=== PATIENT | male | born 1980 | race Caucasian/White ===

== ENCOUNTER 2022-03-14 15:36 | Inpatient (IN) | payer OTHER ==
[~2022-03-14] VITALS: Ht 167.6 cm; Wt 91.2 kg
[2022-03-14 16:19] VITALS: BP 160/83
[2022-03-14 17:09] LABS: BASOPHILS # (AUTO) 0.1 K/uL (0.00-0.22); BASOPHILS % (AUTO) 0.5 % (0.0-2.0); EOSINOPHILS # (AUTO) 0.1 K/uL (0-0.4); EOSINOPHILS % (AUTO) 0.8 % (0.0-4.0); HEMATOCRIT 45.8 % (36-52); HEMOGLOBIN 15.9 g/dL (12.0-18.0); LYMPHOCYTES # (AUTO) 1.1 K/uL (2.0-11.5); LYMPHOCYTES % (AUTO) 7.9 % (20.5-51.1); MEAN CORPUSCULAR HEMOGLOBIN 29 pg (27-31); MEAN CORPUSCULAR HGB CONC 35 g/dL (33-37); MEAN CORPUSCULAR VOLUME 82.7 fL (80-94); MONOCYTES # (AUTO) 1.2 K/uL (0.8-1.0); MONOCYTES % (AUTO) 8.2 % (1.7-9.3); NEUTROPHILS # (AUTO) 11.5 K/uL (1.8-7.7); NEUTROPHILS % (AUTO) 82.6 % (42.2-75.2); PLATELET COUNT (AUTO) 409 K/uL (140-450); RED BLOOD CELL COUNT(AUTO) 5.54 MIL/uL (4.20-6.10); RED CELL DISTRIBUTION WIDTH 13.4 % (11.6-13.7)
[2022-03-14 17:26] LABS: APPEARANCE,URINE CLEAR (CLEAR); BILIRUBIN,URINE 1+ (NEGATIVE); BLOOD, URINE 1+ (NEGATIVE); COLOR,URINE YELLOW (YELLOW); LEUKOCYTE ESTERASE ,URINE NEGATIVE (NEGATIVE); NITRITE, URINE NEGATIVE (NEGATIVE); UGLUCOSE NEGATIVE (NEGATIVE)
[2022-03-14 17:31] LABS: ALBUMIN 3.8 g/dL (3.4-5.0); ANION GAP 14.3 (8-16); CARBON DIOXIDE 28.8 mmol/L (21-32); CREATININE 1.1 mg/dL (0.6-1.3); POTASSIUM 3.1 mmol/L (3.5-5.1); TOTAL BILIRUBIN 0.5 mg/dL (0.0-1.0)
[2022-03-14] MEDS ORDERED: PIPERACILLIN/TAZOBACTAM 3.375 GM in DEXTROSE 5% 50 ML IV ONE (17:40)
[2022-03-14] MEDS ORDERED: MORPHINE SULFATE 4 MG/ML SYR IVP ONE (17:40)
[2022-03-14] MEDS ORDERED: POTASSIUM CHLORIDE 10 MEQ TABER PO ONE (17:40)
[2022-03-14] MEDS ORDERED: PIPERACILLIN/TAZOBACTAM 3.375 GM VIAL IV ONE ×2 (17:41→23:51)
[2022-03-14 17:59] LABS: RBC,URINE 0-5 /HPF (0-5); WBC,URINE 0-5 /HPF (0-5)
[2022-03-14] MEDS ORDERED: DEXT 5% / NACL 0.45% 1,000 ML IV SCH (19:00)
[2022-03-14] MEDS ORDERED: ONDANSETRON 4 MG/2 ML VIAL IM/IVP PRN (20:25)
[2022-03-14] MEDS ORDERED: NACL 0.9% 1,000 ML IV SCH (20:25)
[2022-03-14] MEDS ORDERED: DOCUSATE SODIUM 100 MG GELCAP PO PRN (20:25)
[2022-03-14] MEDS ORDERED: guaiFENesin DM 200/20 MG-10 ML 10 ML UDC PO PRN (20:25)
[2022-03-14] MEDS ORDERED: NACL 0.9% 2,000 ML IV ONE (20:30)
[2022-03-14] MEDS: PSYLLIUM 12.2 GM/PKT PO SCH (20:30)
[2022-03-14 21:03] LABS: AMYLASE 43 U/L (25-115); CHOL/HDL RATIO 5.5 (1-4.5); HDL CHOLESTEROL 47 mg/dL (40-60); LDL (CALC) 184 mg/dL (60-100); MAGNESIUM 2.4 mg/dL (1.8-2.4); PHOSPHORUS 3.5 mg/dL (2.5-4.9); THYROID STIMULATING HORMONE 1.38 uIU/mL (0.34-3.74); TRIGLYCERIDES 140 mg/dL (30-150)
[2022-03-14 21:05] LABS: PROTHROMBIN TIME 10.7 secs (10.8-13.4)
[2022-03-14 21:10] VITALS: BP 141/84
[2022-03-14] MEDS: DEXT 5% / NACL 0.9% 1,000 ML IV SCH (21:45)
[2022-03-14] MEDS ORDERED: lisinopriL 20 MG TAB PO SCH (21:45)
[2022-03-14] MEDS: ACETAMINOPHEN 325 MG TAB PO PRN (22:45)
[2022-03-14] MEDS: ZOLPIDEM 5 MG TAB PO PRN (23:15)
[2022-03-15 00:06] VITALS: BP 122/74
[2022-03-15] MEDS: PIPERACILLIN/TAZOBACTAM 3.375 GM in DEXTROSE 5% 50 ML IV SCH ×5 (00:19→23:58)
[2022-03-15 00:43] LABS: BARBITURATE, URINE NEGATIVE ng/ml (NEG <=200); BENZODIAZEPINE, URINE NEGATIVE ng/mL (NEG <=200); CANNABINOID, URINE POSITIVE ng/mL (NEG <=50); COCAINE, URINE NEGATIVE ng/mL (NEG <=300); OPIATE, URINE POSITIVE ng/mL (NEG <=2000); PHENCYCLIDINE SCREEN,URINE NEGATIVE ng/mL (NEG <=25)
[2022-03-15 04:00] VITALS: BP 130/74
[2022-03-15] MEDS: DEXT 5% / NACL 0.9% 1,000 ML IV SCH ×3 (04:52→20:55)
[2022-03-15] MEDS ORDERED: PIPERACILLIN/TAZOBACTAM 3.375 GM VIAL IV ONE (05:17)
[2022-03-15] MEDS: ACETAMINOPHEN 325 MG TAB PO PRN (05:58)
[2022-03-15 06:52] LABS: BASOPHILS % (AUTO) 0.3 % (0.0-2.0); EOSINOPHILS % (AUTO) 0.2 % (0.0-4.0); HEMATOCRIT 40.9 % (36-52); HEMOGLOBIN 14.1 g/dL (12.0-18.0); LYMPHOCYTES # (AUTO) 1.4 K/uL (2.0-11.5); LYMPHOCYTES % (AUTO) 9.9 % (20.5-51.1); MEAN CORPUSCULAR HEMOGLOBIN 29 pg (27-31); MEAN CORPUSCULAR HGB CONC 35 g/dL (33-37); MONOCYTES # (AUTO) 1.4 K/uL (0.8-1.0); MONOCYTES % (AUTO) 10.2 % (1.7-9.3); NEUTROPHILS # (AUTO) 11.2 K/uL (1.8-7.7); NEUTROPHILS % (AUTO) 79.4 % (42.2-75.2); PLATELET COUNT (AUTO) 371 K/uL (140-450); RED BLOOD CELL COUNT(AUTO) 4.93 MIL/uL (4.20-6.10); RED CELL DISTRIBUTION WIDTH 13.8 % (11.6-13.7); WHITE BLOOD COUNT (AUTO) 14.1 K/uL (4.8-10.8)
[2022-03-15 07:11] LABS: ANION GAP 13.8 (8-16); CARBON DIOXIDE 28.9 mmol/L (21-32); CREATININE 1.1 mg/dL (0.6-1.3); POTASSIUM 3.7 mmol/L (3.5-5.1)
[2022-03-15 08:00] VITALS: BP 119/76
[2022-03-15 09:06] LABS: T4 (THYROXINE) 10.4 ug/dL (4.5-12.0)
[2022-03-15] MEDS: PSYLLIUM 12.2 GM/PKT PO SCH ×2 (09:49→20:56)
[2022-03-15] MEDS: PANTOPRAZOLE 40 MG TABEC PO SCH (09:50)
[2022-03-15] MEDS: MORPHINE SULFATE 2 MG/ML SYR IVP PRN (12:19)
[2022-03-15 16:00] VITALS: BP 127/76
[2022-03-15] MEDS: HYDROcodone/APAP 7.5/325 MG 1 TAB PO PRN ×2 (16:25→20:55)
[2022-03-15 20:00] VITALS: BP 136/84
[2022-03-15] MEDS: ZOLPIDEM 5 MG TAB PO PRN (22:57)
[2022-03-16] MEDS: MORPHINE SULFATE 2 MG/ML SYR IVP PRN ×4 (01:48→18:24)
[2022-03-16] MEDS: DEXT 5% / NACL 0.9% 1,000 ML IV SCH ×4 (02:52→21:00)
[2022-03-16 04:00] VITALS: BP 133/77
[2022-03-16] MEDS: PIPERACILLIN/TAZOBACTAM 3.375 GM in DEXTROSE 5% 50 ML IV SCH ×3 (06:10→18:25)
[2022-03-16 06:56] LABS: BASOPHILS % (AUTO) 0.3 % (0.0-2.0); EOSINOPHILS # (AUTO) 0.1 K/uL (0-0.4); EOSINOPHILS % (AUTO) 0.6 % (0.0-4.0); HEMATOCRIT 37.5 % (36-52); HEMOGLOBIN 12.9 g/dL (12.0-18.0); LYMPHOCYTES # (AUTO) 0.9 K/uL (2.0-11.5); LYMPHOCYTES % (AUTO) 7.1 % (20.5-51.1); MEAN CORPUSCULAR HEMOGLOBIN 28 pg (27-31); MEAN CORPUSCULAR HGB CONC 35 g/dL (33-37); MEAN CORPUSCULAR VOLUME 82.2 fL (80-94); MONOCYTES # (AUTO) 1.2 K/uL (0.8-1.0); MONOCYTES % (AUTO) 9.2 % (1.7-9.3); NEUTROPHILS # (AUTO) 11.1 K/uL (1.8-7.7); NEUTROPHILS % (AUTO) 82.8 % (42.2-75.2); PLATELET COUNT (AUTO) 336 K/uL (140-450); RED BLOOD CELL COUNT(AUTO) 4.57 MIL/uL (4.20-6.10); RED CELL DISTRIBUTION WIDTH 13.6 % (11.6-13.7); WHITE BLOOD COUNT (AUTO) 13.4 K/uL (4.8-10.8)
[2022-03-16 07:35] LABS: ANION GAP 12.3 (8-16); CARBON DIOXIDE 25.8 mmol/L (21-32); CREATININE 0.9 mg/dL (0.6-1.3); POTASSIUM 3.1 mmol/L (3.5-5.1)
[2022-03-16] MEDS: PANTOPRAZOLE 40 MG TABEC PO SCH (08:38)
[2022-03-16] MEDS: PSYLLIUM 12.2 GM/PKT PO SCH ×2 (08:39→21:56)
[2022-03-16] MEDS: HYDROcodone/APAP 7.5/325 MG 1 TAB PO PRN ×3 (08:39→19:56)
[2022-03-16 12:00] VITALS: BP 128/81
[2022-03-16] MEDS: POTASSIUM CHLORIDE 10 MEQ TABER PO PRN (12:36)
[2022-03-16] MEDS: ZOLPIDEM 5 MG TAB PO PRN (21:58)
[2022-03-17] VITALS: BP 129/80
[2022-03-17] MEDS: MORPHINE SULFATE 2 MG/ML SYR IVP PRN ×2 (02:24→09:48)
[2022-03-17 04:00] VITALS: BP 130/80
[2022-03-17] MEDS: DEXT 5% / NACL 0.9% 1,000 ML IV SCH ×2 (05:00→17:24)
[2022-03-17] MEDS: PIPERACILLIN/TAZOBACTAM 3.375 GM in DEXTROSE 5% 50 ML IV SCH ×6 (06:00→23:05)
[2022-03-17 07:10] LABS: BASOPHILS # (AUTO) 0.1 K/uL (0.00-0.22); BASOPHILS % (AUTO) 0.6 % (0.0-2.0); EOSINOPHILS # (AUTO) 0.2 K/uL (0-0.4); EOSINOPHILS % (AUTO) 1.3 % (0.0-4.0); HEMATOCRIT 35.6 % (36-52); HEMOGLOBIN 12.3 g/dL (12.0-18.0); LYMPHOCYTES # (AUTO) 1.8 K/uL (2.0-11.5); LYMPHOCYTES % (AUTO) 14.9 % (20.5-51.1); MEAN CORPUSCULAR HEMOGLOBIN 29 pg (27-31); MEAN CORPUSCULAR HGB CONC 35 g/dL (33-37); MEAN CORPUSCULAR VOLUME 82.7 fL (80-94); MONOCYTES # (AUTO) 1.4 K/uL (0.8-1.0); MONOCYTES % (AUTO) 11.3 % (1.7-9.3); NEUTROPHILS # (AUTO) 8.6 K/uL (1.8-7.7); NEUTROPHILS % (AUTO) 71.9 % (42.2-75.2); PLATELET COUNT (AUTO) 355 K/uL (140-450); RED BLOOD CELL COUNT(AUTO) 4.31 MIL/uL (4.20-6.10); RED CELL DISTRIBUTION WIDTH 13.8 % (11.6-13.7)
[2022-03-17 07:25] LABS: CARBON DIOXIDE 27.2 mmol/L (21-32); CREATININE 0.9 mg/dL (0.6-1.3); POTASSIUM 3.2 mmol/L (3.5-5.1)
[2022-03-17] MEDS: PANTOPRAZOLE 40 MG TABEC PO SCH (08:58)
[2022-03-17] MEDS: POTASSIUM CHLORIDE 10 MEQ TABER PO PRN (09:03)
[2022-03-17 12:00] VITALS: BP 136/80
[2022-03-17] MEDS ORDERED: FLUMAZENIL 0.5 MG/5 ML VIAL IVP ONE (12:45)
[2022-03-17] MEDS ORDERED: fentaNYL citrate 0.05 MG/ML VIAL ONE (12:46)
[2022-03-17] MEDS ORDERED: MIDAZOLAM 5 MG/5 ML VIAL ONE (12:47)
[2022-03-17] MEDS ORDERED: LIDOCAINE/EPI MPF 1%1:200000 30 ML VIAL INJ ONE (12:47)
[2022-03-17] MEDS ORDERED: NALOXONE 0.4 MG/ML VIAL ONE (13:00)
[2022-03-17] MEDS: HYDROcodone/APAP 7.5/325 MG 1 TAB PO PRN ×2 (14:54→20:47)
[2022-03-17 20:00] VITALS: BP 120/60
[2022-03-18] MEDS: ZOLPIDEM 5 MG TAB PO PRN (00:17)
[2022-03-18] MEDS: DEXT 5% / NACL 0.9% 1,000 ML IV SCH ×2 (00:21→09:05)
[2022-03-18 04:00] VITALS: BP 111/70
[2022-03-18] MEDS: PIPERACILLIN/TAZOBACTAM 3.375 GM in DEXTROSE 5% 50 ML IV SCH ×2 (05:06→12:16)
[2022-03-18 07:43] LABS: BASOPHILS % (AUTO) 0.7 % (0.0-2.0); EOSINOPHILS # (AUTO) 0.4 K/uL (0-0.4); EOSINOPHILS % (AUTO) 5.9 % (0.0-4.0); HEMATOCRIT 39.6 % (36-52); HEMOGLOBIN 13.8 g/dL (12.0-18.0); LYMPHOCYTES # (AUTO) 1.3 K/uL (2.0-11.5); LYMPHOCYTES % (AUTO) 20.6 % (20.5-51.1); MEAN CORPUSCULAR HEMOGLOBIN 29 pg (27-31); MEAN CORPUSCULAR HGB CONC 35 g/dL (33-37); MEAN CORPUSCULAR VOLUME 83.4 fL (80-94); MONOCYTES # (AUTO) 0.7 K/uL (0.8-1.0); MONOCYTES % (AUTO) 11.3 % (1.7-9.3); NEUTROPHILS # (AUTO) 3.9 K/uL (1.8-7.7); NEUTROPHILS % (AUTO) 61.5 % (42.2-75.2); PLATELET COUNT (AUTO) 357 K/uL (140-450); RED BLOOD CELL COUNT(AUTO) 4.75 MIL/uL (4.20-6.10); RED CELL DISTRIBUTION WIDTH 13.7 % (11.6-13.7); WHITE BLOOD COUNT (AUTO) 6.4 K/uL (4.8-10.8)
[2022-03-18 07:57] LABS: ANION GAP 12.1 (8-16); CARBON DIOXIDE 28.2 mmol/L (21-32); CREATININE 0.9 mg/dL (0.6-1.3); POTASSIUM 3.3 mmol/L (3.5-5.1)
[2022-03-18] MEDS: PANTOPRAZOLE 40 MG TABEC PO SCH (08:59)
[2022-03-18] MEDS: POTASSIUM CHLORIDE 10 MEQ TABER PO PRN (09:00)
[2022-03-18] MEDS ORDERED: DOCU-299 PO (11:03)
[2022-03-18] MEDS ORDERED: AMOX1TAB8 PO (11:03)
[2022-03-18] MEDS ORDERED: PANT40EC56 PO (11:03)
[2022-03-18 12:00] VITALS: BP 106/67
== END 2022-03-18 14:58 | disposition home or self-care (01) | DRG 872 ==
LOC: MED 15:36 → MTU 18:58
PROVIDERS: ADMIT Family Medicine; ATTEND Family Medicine
DX: A41.9 Sepsis, unspecified organism (principal); K57.20 Diverticulitis of large intestine with perforation and abscess without bleeding; Z20.822 Contact with and (suspected) exposure to COVID-19; E78.2 Mixed hyperlipidemia; E86.0 Dehydration; E87.6 Hypokalemia; F12.90 Cannabis use, unspecified, uncomplicated; E83.51 Hypocalcemia; R73.9 Hyperglycemia, unspecified; K76.0 Fatty (change of) liver, not elsewhere classified
CPT/HCPCS: 36415; 71045; 80048; 80053; 80305; 81001; 82150; 83036; 83690; 83735; 83880; 84100; 84436; 84439; 84443; 84479; 84484; 85025; 85610; 85730; 87081; 96365; 96375; 99285; J2001; J2250; J2270; J2310; J2543; J3010; J3490; J7060; Q0092